=== PATIENT | female | born 1960 | race Two or more races ===

== ENCOUNTER 2023-08-26 19:39 | Emergency (ER) | payer SELFPAY ==
[~2023-08-26] VITALS: Ht 167.6 cm; Wt 88.0 kg
[2023-08-26 20:43] LABS: Basophils # (auto) 0.1 10 ^3/uL (0-0.2); Basophils % (auto) 0.8 % (0.0-2.0); Eosinophils # (auto) 0.2 10 ^3/uL (0-0.8); Eosinophils % (auto) 2.5 % (0.0-7.0); Hematocrit 42.2 % (36.0-46.0); Hemoglobin 14.2 g/dL (12.2-16.2); Lymphocytes # (auto) 4.3 10 ^3/uL (0.4-5.4); Mean Corpuscular Hemoglobin 30.8 pg (28.0-32.0); Mean Corpuscular Hgb Conc. 33.6 g/dL (32.0-36.0); Mean Corpuscular Volume 91.5 fL (80.0-100.0); Monocytes # (auto) 0.8 10 ^3/uL (0-1.3); Monocytes % (auto) 8.7 % (0.0-12.0); Neutrophils # (auto) 3.9 10 ^3/uL (1.6-8.6); Red Blood Cells 4.61 10^6/uL (4.0-5.20); Red Cell Distribution Width 13.4 % (11.8-14.3); White Blood Cell 9.4 10^3/uL (4.4-10.8)
[2023-08-26 20:59] LABS: Alanine Aminotransferase 24 U/L (7-40); Albumin 4.5 g/dL (3.2-4.8); Alkaline Phosphatase 87 U/L (46-116); Anion Gap 4 (5-15); Aspartate Aminotransferase 23 U/L (13-40); BUN/Creatinine Ratio 17.1 (10.0-20.0); Bilirubin, Total 0.3 mg/dL (0.2-1.0); Blood Urea Nitrogen 12 mg/dL (9-23); Carbon Dioxide 29 mmol/L (20-30); Chloride 111 mmol/L (98-107); Glucose 93 mg/dL (74-106); Potassium 4.6 mmol/L (3.5-5.1); Sodium 144 mmol/L (136-145); Total Protein 6.8 g/dL (5.7-8.2)
[2023-08-26 21:30] VITALS: PULSE 92; RESP 20; O2SAT 98
[2023-08-27] MEDS: LORazepam 2MG/ML-1ML VIAL ONE (02:41)
[2023-08-27 07:37] VITALS: BP 156/92; PULSE 89; RESP 16; TEMP 98.6; O2SAT 96
== END 2023-08-27 07:46 | disposition home or self-care (01) ==
LOC: EDBD 19:39 → ER 19:39
DX: R40.4 Transient alteration of awareness (principal)
CPT/HCPCS: 36415; 80053; 80320; 85025; 99283; J2060

== ENCOUNTER 2024-07-09 19:47 | Emergency (ER) | payer OTHER ==
[~2024-07-09] VITALS: Ht 165.1 cm; Wt 77.1 kg
[2024-07-09 19:54] VITALS: BP 117/69; TEMP 98.2
--- NOTE | 2024-07-09 20:03 | ED.PDOC ---
History of Present Illness HPI Comments This is a 63-year-old female who comes in with chief complaint of alcohol intoxication. The patient was picked up at her daughter's house on the front lawn after tripping and falling and landing on the ground. The patient has been drinking a significant amount of alcohol. There has been no nausea, vomiting or diarrhea. The patient does admit to drinking fairly heavily. She states that she takes medications for depression after her back in 2021. Upon arrival, the patient was able to answer questions but she is obviously intoxicated. 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 Family History Family History: Unknown Social History Smoker: Cigarettes Alcohol: Heavy Drugs: Denies Drug Use Lives In: Home Constitutional: denies: chills, diaphoresis, fatigue, fever, malaise, sweats, weakness, others EENTM: denies: blurred vision, double vision, ear bleeding, ear discharge, ear drainage, ear pain, ear ringing, eye pain, eye redness, hearing loss, mouth pain, mouth swelling, nasal discharge, nose bleeding, nose congestion, nose pain, photophobia, tearing, throat pain, throat swelling, voice changes, others Respiratory: denies: cough, hemoptysis, orthopnea, SOB at rest, shortness of breath, SOB with excertion, stridor, wheezing, others Cardiovascular: denies: chest pain, dizzy spells, diaphoresis, Dyspnea on exertion, edema, irregular heart beat, left arm pain, lightheadedness, palpitations, PND, syncope, others Gastrointestinal: denies: abdomen distended, abdominal pain, blood streaked bowels, constipated, diarrhea, dysphagia, difficulty swallowing, hematemesis, melena, nausea, poor appetite, poor fluid intake, rectal bleeding, rectal pain, vomiting, others Genitourinary: denies: abnormal vagina bleeding, burning, dyspareunia, dysuria, flank pain, frequency, hematuria, incontinence, pain, , vagina discharge, urgency, others Neurological: denies: dizziness, fainting, headache, left sided numbness, left sided weakness, numbness, paresthesia, pre-existing deficit, right sided numbnes s, right sided weakness, seizure, speech problems, tingling, tremors, weakness, others Musculoskeletal: denies: back pain, gout, joint pain, joint swelling, muscle pain, muscle stiffness, neck pain, others Integumetry: denies: bruises, change in color, change in hair/nails, dryness, laceration, lesions, lumps, rash, wounds, others Allergic/Immunocompromised: denies: Difficulty Healing, Frequent Infections, Hives, Itching, others Hematologic/Lymphatic: denies: anemia, blood clots, easy bleeding, easy bruising, swollen glands, others Endocrine: denies: excessive hunger, excessive sweating, excessive thirst, excessive urination, flushing, intolerance to cold, intolerance to heat, unexplained weight gain, unexplained weight loss, others Psychiatric: denies: anxiety, bipolar disorder, depression, hopeless, panic disorder, schizophrenia, sleepless, suicidal, others Physical Exam General Appearance: Mild Distress, Other (Alcohol on the breath) HEENT: Normal ENT Inspection, Pharynx Normal, TMs Normal Neck: Full Range of Motion, Non-Tender, Normal, Normal Inspection Respiratory: Chest Non-Tender, Lungs Clear, No Accessory Muscle Use, No Respiratory Distress, Normal Breath Sounds Cardiovascular: No Edema, No JVD, No Murmur, No Gallop, Normal Peripheral Pulses, Regular Rate/Rhythm Breast Exam: Deferred Gastrointestinal: No Organomegaly, Non Tender, No Pulsatile Mass, Normal Bowel Sounds, Soft Genitalia: Deferred Pelvic: Deferred Rectal: Deferred Extremities: No calf tenderness, Normal capillary refill, Normal inspection, Normal range of motion, Non-tender, No pedal edema Musculoskeletal : Apperance: Normal Neurologic: cork mixer II-XII nml as Tested, Motor Weakness, No Sensory Deficits, Other (Intoxicated) Cerebellar Function: Normal Reflexes: Normal Skin: Dry, Normal Color, Warm Lymphatic: No Adenopathy Was a procedure done? Was a procedure done?: No Differential Dx Considerations may include: Alcohol intoxication X-Ray, Labs, Meds, VS Vital Signs Date Time Temp Pulse Resp B/P (MAP) Pulse Ox O2 Delivery O2 Flow Rate FiO2 07/09/24 20:32 96 18 100 Room Air 07/09/24 19:54 98.2 96 18 117/69 (85) 100 98.2 Lab Test 07/09/24 20:11 Range/Units Plasma/Serum Blood Alcohol 290.7 H <10 mg/dL Current Medications Medications (Trade) Dose Ordered Sig/Inga Route Start Time Stop Time Status Last Admin Sodium Chloride 1,000 ml @ 1,000 mls/hr Q1H ONCE IV 07/09/24 20:00 07/09/24 20:59 DC 07/09/24 20:32 IV Hep-Lock was established The patient was being given a 1 L bolus of normal saline The patient was alcohol level is 290.7 The patient will be discharged with the family The patient was able to ambulate in the emergency department's and answer all questions The patient will return to the emergency department's condition worsens. Time of 1ST Reevaluation: 20:06 Reevaluation 1ST: Unchanged Patient Education/Counseling: Diagnosis, Treatment, Prognosis, Need For Follow Up Family Education/Counseling: No Family Present Departure 1 Departure Time of Disposition: 21:28 Impression: Primary Impression: Alcohol intoxication Qualified Codes: F10.920 - Alcohol use, unspecified with intoxication, uncomplicated Disposition: 01 HOME / SELF CARE / HOMELESS Condition: Fair Discharged With: Self Critical Care Note Critical Care Time?: No Stability Stability form required: No Heart Score Heart Score: Heart Score Response (Comments) Value History N/A 0 EKG N/A 0 Age N/A 0 Risk Factors N/A 0 Troponin N/A 0 Total 0 JOSSE FIGUEROA MD Jul 09, 2024 20:03
[2024-07-09 20:32] VITALS: PULSE 96; RESP 18; O2SAT 100
[2024-07-09] MEDS: SODIUM CHLORIDE 0.9% 1,000 ML IV ONE (20:32)
== END 2024-07-09 22:47 | disposition left against medical advice (07) ==
LOC: EDBD 19:47 → ER 19:50
DX: F10.129 Alcohol abuse with intoxication, unspecified (principal); I10 Essential (primary) hypertension; F17.210 Nicotine dependence, cigarettes, uncomplicated; F32.A Depression, unspecified; Y90.8 Blood alcohol level of 240 mg/100 ml or more
CPT/HCPCS: 36415; 80320; 96360; 99283; J7030

== ENCOUNTER 2024-11-05 11:41 | Emergency (ER) | payer OTHER ==
[~2024-11-05] VITALS: Ht 160 cm; Wt 77.2 kg
[2024-11-05] MEDS: HYDROcodone-ACET 10/325MG TAB PO ONE (12:09)
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
[2024-11-05 15:00] VITALS: BP 136/89; PULSE 78; RESP 16; TEMP 98.7; O2SAT 97
[2024-11-05] MEDS ORDERED: HYDR-4902 PO (15:15)
[2024-11-05] MEDS: HYDROcodone-ACET 5/325MG TAB PO ONE (15:25)
--- NOTE | 2024-11-10 13:14 | DVHNC2 ---
Reduction Indication: Fracture Sedation: Sedation as ordered Post-reduction x-ray show: Good Alignment Notes Explained to the patient before given pain medication that we will be stretching arrest aligning the radius ulnar placing a splint. Date of Service: Nov 10, 2024 Billing Provider: JONEL VALIENTE MD Common Visit Codes: [id number] INP/OBS CARE (HIGH) Secondary Visit Codes: [id number] STANDBY SERVICE Consultation Codes: [id number] CONSULT <45MIN JONEL VALIENTE MD Nov 10, 2024 13:14
== END 2024-11-05 15:01 | disposition home or self-care (01) ==
LOC: ER 11:41 → EDBD 11:41 → ER 15:01
DX: S52.532A Colles' fracture of left radius, initial encounter for closed fracture (principal); I10 Essential (primary) hypertension; F17.210 Nicotine dependence, cigarettes, uncomplicated; V89.2XXA Person injured in unspecified motor-vehicle accident, traffic, initial encounter; Y93.89 Activity, other specified; Y92.410 Unspecified street and highway as the place of occurrence of the external cause; Y99.8 Other external cause status
CPT/HCPCS: 25605; 29125; 73100